=== PATIENT | female | born 1990 | race African-American/Black ===

== ENCOUNTER 2023-04-22 23:20 | Inpatient (IN) | payer OTHER ==
[~2023-04-22] VITALS: Ht 177.8 cm; Wt 65.8 kg
[2023-04-22] MEDS ORDERED: FERR325T6 PO (23:40)
[2023-04-22] MEDS ORDERED: PNV1TABL76 PO (23:40)
[2023-04-23] MEDS ORDERED: MISOPROSTOL 100MCG TABLET VG SCH (00:30)
[2023-04-23] MEDS ORDERED: METHYLERGONOVINE MALEATE 0.2 MG/ML IM PRN (00:30)
[2023-04-23] MEDS ORDERED: NALOXONE HCL 0.4 MG/ML 1ML VIAL IM PRN (00:30)
[2023-04-23] MEDS ORDERED: OXYTOCIN 30 UNITS/500ML NS PMX 500 ML IV SCH ×2 (00:30→05:45)
[2023-04-23] MEDS ORDERED: CARBOPROST TROMETHAMINE 250 MCG/ML AMPUL IM PRN (00:30)
[2023-04-23] MEDS: LACTATED RINGERS 1,000 ML IV SCH ×2 (00:37→04:03)
[2023-04-23 01:26] LABS: BASOPHILS % 0.2 % (0.0-2.0); EOSINOPHILS % 0.9 % (0.0-5.0); HEMATOCRIT. 31.7 % (36.0-48.0); HEMOGLOBIN. 10.4 g/dL (12.0-16.0); MEAN CORPUSCULAR HEMOGLOBIN 28.3 pg (28.0-32.0); MEAN CORPUSCULAR VOLUME 86.6 fL (81.0-99.0); MONOCYTES % 6.9 % (2.0-8.0); PLATELET 174 x1000/uL (130-400); RED BLOOD CELL COUNT 3.66 mill/uL (4.2-5.4); RED CELL DISTRIBUTION WIDTH 15.4 % (11.6-14.6)
[2023-04-23 01:34] LABS: INR 0.9; PARTIAL THROMBOPLASTIN TIME 29.9 sec (23.4-31.0)
[2023-04-23 02:11] LABS: HEPATITIS B SURFACE ANTIGEN NEGATIVE
[2023-04-23] MEDS ORDERED: FENTANYL CITRATE/PF 50MCG/ML 2ML VIAL ONE (03:35)
[2023-04-23] MEDS ORDERED: ONDANSETRON HCL 4MG/2ML INJ ONE (03:35)
[2023-04-23] MEDS ORDERED: OXYTOCIN 10 UNITS/ML 1ML ONE (03:35)
[2023-04-23] MEDS ORDERED: MORPHINE SULFATE/PF 1MG/ML 10ML AMP ONE (03:35)
[2023-04-23] MEDS ORDERED: CEFAZOLIN SODIUM 1000MG/VIAL ONE (03:35)
[2023-04-23] MEDS ORDERED: DIPHENHYDRAMINE 50MG/ML VIAL ONE (03:35)
[2023-04-23] MEDS ORDERED: EPHEDRINE SULFATE 50MG/ML VIAL ONE (03:35)
[2023-04-23] MEDS ORDERED: METOCLOPRAMIDE HCL 10MG/2ML VIAL ONE (04:40)
[2023-04-23] MEDS ORDERED: TRANEXAMIC ACID 10 ML ONE (04:52)
[2023-04-23] MEDS ORDERED: KETOROLAC 60MG/2ML VIAL IM ONE (05:23)
[2023-04-23 05:30] LABS: *AMPHETAMINES SCREEN URINE NEGATIVE (NEGATIVE); *BARBITURATES SCREEN URINE NEGATIVE (NEGATIVE); *BENZODIAZEPINES SCREEN URINE NEGATIVE (NEGATIVE); *COCAINE SCREEN URINE NEGATIVE (NEGATIVE); CANNABINOID URINE SCREEN NEGATIVE (NEGATIVE); METHADONE URINE SCREEN NEGATIVE (NEGATIVE); OPIATES URINE SCREEN NEGATIVE (NEGATIVE); PHENCYCLIDINE URINE SCREEN NEGATIVE (NEGATIVE)
[2023-04-23] MEDS ORDERED: NALOXONE HCL 0.4 MG/ML 1ML VIAL IV PRN (05:30)
[2023-04-23] MEDS ORDERED: DIPHENHYDRAMINE 50MG/ML VIAL IV PRN (05:30)
[2023-04-23] MEDS ORDERED: DIPHENHYDRAMINE 25MG CAPSULE PO PRN (05:45)
[2023-04-23] MEDS ORDERED: LANOLIN OINT 7GM TUBE TOP PRN (05:45)
[2023-04-23] MEDS ORDERED: HEMORRHOIDAL SUPP PR PRN (05:45)
[2023-04-23] MEDS ORDERED: OXYCODONE HCL/ACETAMINOPHEN 5/325MG TABLET PO PRN (05:45)
[2023-04-23] MEDS ORDERED: IBUPROFEN 400MG TABLET PO PRN (05:45)
[2023-04-23] MEDS ORDERED: RHO(D) IMMUNE GLOBULIN 300 MCG/SYR IM PRN (05:45)
[2023-04-23] MEDS ORDERED: BISACODYL 10MG SUPP PR PRN (05:45)
[2023-04-23] MEDS ORDERED: ONDANSETRON HCL 4MG/2ML INJ IV PRN (05:45)
[2023-04-23] MEDS ORDERED: CEFAZOLIN 2,000 MG in DEXT 5% WATER 100 ML IV SCH (07:00)
[2023-04-23 08:36] LABS: CLARITY URINE CLOUDY (CLEAR); COLOR URINE YELLOW (YELLOW); KETONES URINE TRACE (NEGATIVE); LEUKOCYTE ESTERASE URINE 3+ (NEGATIVE); NITRITE URINE NEGATIVE (NEGATIVE); OCCULT BLOOD URINE TRACE (NEGATIVE); PROTEIN URINE NEGATIVE (NEGATIVE); SPECIFIC GRAVITY URINE 1.008 (1.005-1.030); UROBILINOGEN URINE 0.2 E.U./dL (0.2-1.0)
[2023-04-23 09:00] VITALS: BP 106/64; PULSE 84; RESP 18; TEMP 98.6
[2023-04-23] MEDS: SIMETHICONE 80MG TABLET CHEW PO SCH ×2 (09:00→21:37)
[2023-04-23] MEDS: PRENATAL VIT/FE FUMARATE/FA TABLET PO SCH (09:00)
[2023-04-23] MEDS: MAGNESIUM/ALUMINUM HYDROXIDE/SIMETHICONE 30ML UDC PO SCH (09:00)
[2023-04-23] MEDS ORDERED: PEN G BENZ/PEN G PROCAINE CR 1.2 MMU/2 ML IM ONE (12:00)
[2023-04-23] MEDS: CEFAZOLIN 2,000 MG in DEXT 5% WATER 100 ML IV SCH ×2 (12:40→21:25)
[2023-04-23 16:00] VITALS: BP 109/74; PULSE 94; RESP 18; TEMP 98.2
[2023-04-23 20:00] VITALS: BP 112/68; PULSE 96; RESP 18; TEMP 99; O2SAT 97
[2023-04-23] MEDS: KETOROLAC 30MG/ML VIAL IV SCH (21:26)
[2023-04-23] MEDS: DOXYCYCLINE HYCLATE 100MG CAPSULE PO SCH (23:53)
[2023-04-24 00:05] VITALS: BP 110/66; PULSE 92; RESP 18; TEMP 99.2
[2023-04-24 04:30] VITALS: BP 106/62; PULSE 94; RESP 18; TEMP 99.6
[2023-04-24] MEDS: KETOROLAC 30MG/ML VIAL IV SCH (04:36)
[2023-04-24 06:21] LABS: BASOPHILS % 0.2 % (0.0-2.0); EOSINOPHILS % 0.6 % (0.0-5.0); HEMATOCRIT. 23.2 % (36.0-48.0); HEMOGLOBIN. 7.8 g/dL (12.0-16.0); LYMPHOCYTES % 16.3 % (20.0-50.0); MEAN CORPUSCULAR HEMOGLOBIN 28.7 pg (28.0-32.0); MEAN CORPUSCULAR VOLUME 85.1 fL (81.0-99.0); MEAN PLATELET VOLUME 7.6 fl (7.4-10.4); MONOCYTES % 9.1 % (2.0-8.0); NEUTROPHILS % 73.8 % (40.0-76.0); PLATELET 154 x1000/uL (130-400); RED BLOOD CELL COUNT 2.72 mill/uL (4.2-5.4); RED CELL DISTRIBUTION WIDTH 15.2 % (11.6-14.6)
[2023-04-24] MEDS: SIMETHICONE 80MG TABLET CHEW PO SCH ×5 (08:00→20:40)
[2023-04-24 08:30] VITALS: O2SAT 98
[2023-04-24 08:44] VITALS: BP 97/56; PULSE 62; RESP 16; TEMP 98.4
[2023-04-24] MEDS: IBUPROFEN 800MG TABLET PO PRN ×2 (11:23→21:37)
[2023-04-24] MEDS: DOXYCYCLINE HYCLATE 100MG CAPSULE PO SCH ×2 (11:50→21:36)
[2023-04-24 11:59] VITALS: BP 96/54; PULSE 105; RESP 18; TEMP 97
[2023-04-24] MEDS: MAGNESIUM/ALUMINUM HYDROXIDE/SIMETHICONE 30ML UDC PO SCH ×3 (12:30→21:37)
[2023-04-24 20:00] VITALS: BP 108/64; PULSE 96; RESP 18; TEMP 98.3; O2SAT 98
[2023-04-24] MEDS: DOCUSATE SODIUM 100MG CAPSULE PO SCH (21:36)
[2023-04-25 04:30] VITALS: BP 109/60; PULSE 91; RESP 18; TEMP 97.9
[2023-04-25] MEDS: SIMETHICONE 80MG TABLET CHEW PO SCH ×2 (08:00→08:22)
[2023-04-25] MEDS: IBUPROFEN 800MG TABLET PO PRN ×2 (08:21→18:37)
[2023-04-25] MEDS: PRENATAL VIT/FE FUMARATE/FA TABLET PO SCH (08:21)
[2023-04-25] MEDS: FERROUS SULFATE 325MG TABLET PO SCH ×2 (08:21→18:37)
[2023-04-25] MEDS: MAGNESIUM/ALUMINUM HYDROXIDE/SIMETHICONE 30ML UDC PO SCH ×2 (08:22→18:38)
[2023-04-25 08:50] VITALS: O2SAT 98
[2023-04-25] MEDS: DOXYCYCLINE HYCLATE 100MG CAPSULE PO SCH ×2 (09:00→20:39)
[2023-04-25 13:00] VITALS: BP 112/72; PULSE 94; RESP 18; TEMP 98.4
[2023-04-25] MEDS ORDERED: NALOXONE HCL 0.4MG/ML VIAL IV PRN (19:00)
[2023-04-25 20:00] VITALS: BP 104/66; PULSE 89; RESP 18; TEMP 98.3; O2SAT 98
[2023-04-25] MEDS: DOCUSATE SODIUM 100MG CAPSULE PO SCH (20:39)
[2023-04-26] MEDS: IBUPROFEN 800MG TABLET PO PRN ×2 (02:41→10:50)
[2023-04-26 04:00] VITALS: BP 103/51; PULSE 92; RESP 18; TEMP 98
[2023-04-26 08:00] VITALS: BP 94/64; PULSE 81; RESP 18; TEMP 98; O2SAT 99
[2023-04-26] MEDS: DOXYCYCLINE HYCLATE 100MG CAPSULE PO SCH (09:00)
[2023-04-26] MEDS: PRENATAL VIT/FE FUMARATE/FA TABLET PO SCH (09:00)
[2023-04-26] MEDS: FERROUS SULFATE 325MG TABLET PO SCH (09:00)
[2023-04-26] MEDS ORDERED: DOXY100C5 PO (10:26)
[2023-04-26] MEDS ORDERED: IBUP-2030 PO (10:26)
[2023-04-26 10:50] VITALS: BP 94/64; PULSE 81; RESP 18
[2023-04-26] MEDS ORDERED: MEDROXYPROGESTERONE ACETATE 150MG/ML VIAL IM NR (11:00)
== END 2023-04-26 11:15 | disposition home or self-care (01) | DRG 540 ==
LOC: 8 EST LDRP 23:20 → OBSVTOIN 23:20 → 8EST 04-23 09:23
PROVIDERS: ADMIT Obstetrics & Gynecology; ATTEND Obstetrics & Gynecology
PROC: 10D00Z1 Extraction of Products of Conception, Low, Open Approach (ICD-10-PCS; principal; 2023-04-23)
DX: O99.02 Anemia complicating childbirth (principal); O98.12 Syphilis complicating childbirth; O34.211 Maternal care for low transverse scar from previous cesarean delivery; Z20.822 Contact with and (suspected) exposure to COVID-19; Z3A.38 38 weeks gestation of pregnancy; Z37.0 Single live birth
CPT/HCPCS: 36415; 76805; 76818; 80305; 81003; 85025; 86592; 86593; 86703; 86762; 86780; 86850; 86900; 87186; 87340; 87426; 88307; 99281; J0690; J1050; J1200; J1885; J2274; J2405; J2765; J3010; J3490; J7060; J2590